=== PATIENT | male | born 1970 | race Caucasian/White ===

== ENCOUNTER 2022-10-31 09:09 | Outpatient (CLI) | payer OTHER, SELFPAY | END 2022-10-31 09:10 | disposition home or self-care (01) | PROVIDERS: PCP Family Medicine; Visit Provider Family Medicine | DX: E78.5 Hyperlipidemia, unspecified (principal); Z12.5 Encounter for screening for malignant neoplasm of prostate | CPT/HCPCS: 80048; 80061; 84153 ==

== ENCOUNTER 2024-10-09 09:43 | Outpatient (CLI) | payer OTHER, SELFPAY | END 2024-10-09 09:44 | disposition home or self-care (01) | PROVIDERS: PCP Family Medicine; Visit Provider Family Medicine | DX: I10 Essential (primary) hypertension (principal); E78.2 Mixed hyperlipidemia; Z12.5 Encounter for screening for malignant neoplasm of prostate; Z13.9 Encounter for screening, unspecified | CPT/HCPCS: 80048; 80061; 85025; G0103 ==

== ENCOUNTER 2024-10-30 07:55 | Outpatient (CLI) | payer OTHER, SELFPAY ==
--- NOTE | 2024-10-30 08:51 | P.ANES_ITS ---
Anesthesia Charges Start Date/Time Anesthesia Start Date: 10/30/24 Anesthesia Start Time: 08:21 Stop Date/Time Anesthesia Stop Date: 10/30/24 Anesthesia Stop Time: 08:49 Coding CPT Codes CPT Codes: FESTUS LWR INTST NDSC NOS - [id number] ([id number]) P2 - PATIENT W/MILD SYST DISEASE, QK - FIREFIGHTER MARINE 2-4 CNCRNT ANES PROC, QX - RECORDS ANALYST SVC W/ MD MED DIRECTION
--- NOTE | 2024-10-30 08:51 | W.ANESCHARGE ---
Anesthesia Charges Start Date/Time Anesthesia Start Date: 10/30/24 Anesthesia Start Time: 08:21 Stop Date/Time Anesthesia Stop Date: 10/30/24 Anesthesia Stop Time: 08:49 Coding CPT Codes CPT Codes: FESTUS LWR INTST NDSC NOS - [id number] ([id number]) P2 - PATIENT W/MILD SYST DISEASE, QK - MARKET RISK SPECIALIST 2-4 CNCRNT ANES PROC, QX - CONVERTER OPERATOR SVC W/ MD MED DIRECTION
--- NOTE | 2024-10-30 10:13 | P.ANES_ITS ---
Anesthesia Charges Start Date/Time Anesthesia Start Date: 10/30/24 Anesthesia Start Time: 08:21 Stop Date/Time Anesthesia Stop Date: 10/30/24 Anesthesia Stop Time: 08:49 Coding CPT Codes CPT Codes: FESTUS LWR INTST NDSC NOS - [id number] ([id number]) P2 - PATIENT W/MILD SYST DISEASE, QK - WEIGH BOX TENDER 2-4 CNCRNT ANES PROC, QX - ASPHALT SPREADER SVC W/ MD MED DIRECTION
--- NOTE | 2024-10-30 10:13 | W.ANESCHARGE ---
Anesthesia Charges Start Date/Time Anesthesia Start Date: 10/30/24 Anesthesia Start Time: 08:21 Stop Date/Time Anesthesia Stop Date: 10/30/24 Anesthesia Stop Time: 08:49 Coding CPT Codes CPT Codes: FESTUS LWR INTST NDSC NOS - [id number] ([id number]) P2 - PATIENT W/MILD SYST DISEASE, QK - TECHNICAL ASSOC 2-4 CNCRNT ANES PROC, QX - COCKTAIL LOUNGE MANAGER SVC W/ MD MED DIRECTION
== END 2024-10-30 07:56 | disposition home or self-care (01) ==
LOC: OP CLINIC 07:55
PROVIDERS: PCP Family Medicine; Visit Provider Surgery
DX: Z12.11 Encounter for screening for malignant neoplasm of colon (principal); D12.3 Benign neoplasm of transverse colon
CPT/HCPCS: 00811; 45385; 88305; J2704